=== PATIENT | female | born 1980 | race Caucasian/White ===

== ENCOUNTER → 2018-12-08 13:29 | Outpatient (CLI) | payer OTHER, SELFPAY ==
[2018-12-08 14:30] LABS: Alanine Aminotransferase 30 U/L (12-78); Albumin/Globulin Ratio 1.1 (1.1-1.8); Alkaline Phosphatase 96 U/L (46-116); Anion Gap 14.6 mEq/L (5-15); Aspartate Amino Transferase 16 U/L (15-37); Bilirubin,Total 0.2 mg/dL (0.2-1.0); Blood Urea Nitrogen 10 mg/dL (7-18); Calcium 9.1 mg/dL (8.5-10.1); Carbon Dioxide 25 mmol/L (21.0-32.0); Chloride 105 mmol/L (98-107); Creatinine,Serum 0.64 mg/dL (0.55-1.02); Estimated Glomerular Filt Rate 104 ml/min (>60); GFR (African American) 126 ML/MIN (>60); Globulin 3.6 gm/dl (1.3-3.2); Glucose 92 mg/dL (74-106); Potassium 4.6 mmoL/L (3.5-5.1); Sodium 140 mmol/L (136-145); Total Protein,Serum 7.6 gm/dL (6.4-8.2)
[2018-12-09 08:12] LABS: Lithium (Eskalith(R)) 0.2 mmol/L (0.6-1.2)
== END ==
PROVIDERS: Visit Provider Nurse Practitioner Psychiatric/Mental Health
DX: F31.9 Bipolar disorder, unspecified (principal); Z79.899 Other long term (current) drug therapy
CPT/HCPCS: 36415; 80053; 80178; 84443

== ENCOUNTER → 2018-12-16 17:10 | Outpatient (CLI) | payer OTHER, SELFPAY ==
[2018-12-16 20:13] LABS: Amphetamine/Metha Screen,Urine Positive ng/mL (<1000); Barbiturates Screen,Urine Negative ng/mL (<200); Benzodiazepines Screen,Urine Negative ng/mL (<200); Cannabinoid Screen,Urine Positive ng/mL (<50); Cocaine Screen,Urine Negative ng/mL (<300); Methadone Screen,Urine Negative ng/mL (<300); Opiate Screen,Urine Positive ng/mL (<300); Phencyclidine Screen,Urine Negative ng/mL (<25)
== END ==
PROVIDERS: Visit Provider Emergency Medicine
DX: Z79.899 Other long term (current) drug therapy (principal)
CPT/HCPCS: 80305

== ENCOUNTER → 2018-12-19 16:14 | Outpatient (CLI) | payer OTHER, SELFPAY ==
[2018-12-19 18:41] LABS: Amphetamine/Metha Screen,Urine Negative ng/mL (<1000); Barbiturates Screen,Urine Negative ng/mL (<200); Benzodiazepines Screen,Urine Negative ng/mL (<200); Cannabinoid Screen,Urine Positive ng/mL (<50); Cocaine Screen,Urine Negative ng/mL (<300); Methadone Screen,Urine Negative ng/mL (<300); Opiate Screen,Urine Negative ng/mL (<300); Phencyclidine Screen,Urine Negative ng/mL (<25)
== END ==
PROVIDERS: Visit Provider Nurse Practitioner Family
DX: Z79.899 Other long term (current) drug therapy (principal)
CPT/HCPCS: 80305

== ENCOUNTER → 2019-01-13 17:45 | Outpatient (CLI) | payer SELFPAY ==
[2019-01-13 18:22] LABS: Amphetamine/Metha Screen,Urine Positive ng/mL (<1000); Barbiturates Screen,Urine Negative ng/mL (<200); Benzodiazepines Screen,Urine Negative ng/mL (<200); Cannabinoid Screen,Urine Positive ng/mL (<50); Cocaine Screen,Urine Negative ng/mL (<300); Methadone Screen,Urine Negative ng/mL (<300); Opiate Screen,Urine Positive ng/mL (<300); Phencyclidine Screen,Urine Negative ng/mL (<25)
== END ==
PROVIDERS: Visit Provider Emergency Medicine
DX: Z79.899 Other long term (current) drug therapy (principal)
CPT/HCPCS: 80305

== ENCOUNTER 2020-07-27 11:11 | Emergency (ER) | payer MEDICARE, MEDICAID, SELFPAY ==
[2020-07-27 11:33] VITALS: BP 112/75; PULSE 94; RESP 18; TEMP 37.1; O2SAT 99; BMI 25.6
--- NOTE | 2020-07-27 11:41 | HMH.EDUTC ---
[facility] [place] Clinical Impression: Exposure to COVID-19 virus, Encounter for laboratory testing for COVID-19 virus, Bronchitis Disposition: Home, Self-Care Condition on Discharge: Good Instructions: Preventing the Spread of Coronavirus Discharge Instructions Additional Instructions: *Monitor Temp, Over the counter Motrin or Tylenol as directed/as needed Tylenol every 4 hours and Motrin every 6 hours (as long as your family doctor has told you that you can take it) for fever or pain. and straight to ER if unable to lower temp less than 101.0 after medication given *Warm salt water gargles may help to soothe the throat *Throat Lozenges *Warm fluids like tea with honey may help to soothe the throat *Sleep elevated *Humidifier/Vaporizer Follow up IMMEDIATELY for new or worsening symptoms or no Noticeable improvement over the next 48-72 hours. 911 for difficulty breathing or swallowing You was tested for today for COVID19 your test result should be back in the next 24-48 hours, you may call to the [facility] later today or tomorrow to see if your test results are back and the result [phone] [facility] hours are 9am-9pm You was given a handout with instructions for Self Quarantine and Self isolation for while you wait on test results and what to do if they are positive If you are positive the Health Dept will be contacting you also Prescriptions: Albuterol Sulfate [Proventil-HFA 90mcg/puff Inh] 1 - 2 puffs IH Q4HP PRN #1 inh PRN Reason: Shortness Of Breath Transmission Status: Received by [facility] Cefdinir [Omnicef 300mg Capsule] 300 mg PO BID #20 cap Transmission Status: Received by [facility] Referrals: PCP,No [Primary Care Provider] - Time of Disposition: 11:54 Medical Decision Making - Pasquale Inquiry Pt receiving controlled substance: No Pasquale was queried for this patient: No Vital Signs: 07/27/20 11:33 07/27/20 11:52 Temperature 98.7 F 98.7 F Temperature Source Oral Oral Pulse Rate 94 H Pulse Rate [Radial] 94 H Respiratory Rate 18 18 Blood Pressure 112/75 Blood Pressure [Right Arm] 112/75 Blood Pressure Mean [Right Arm] 87 Blood Pressure Source Automatic Cuff Blood Pressure Source [Right Arm] Automatic Cuff Blood Pressure Position Sitting Blood Pressure Position [Right Arm] Sitting 02 Sat by Pulse Oximetry 99 Oxygen Delivery Method Room Air Room Air Orders (Tests/Meds): ORDERS Category Date Time Status Covid-19 Nasal PCR ([facility]) Routine Lab 07/27/20 11:36 Ordered [facility] UTC HPI - General Stated complaint: covid exposure Time Seen by Provider: 07/27/20 11:41 Mode of Arrival: Ambulatory Source of Information: Patient Limitations: No Limitations Description of Symptoms (Recalled from Triage Doc. by RN): COUGH, FATIGUE, WANTS COVID TEST HEENT Symptoms (Recalled from RN notes): Yes Resp Symptoms (Recalled from RN notes): No Skin Symptoms (Recalled from RN notes): No MS Symptoms (Recalled from RN notes): No Functional Status (Recalled from RN notes): WNL - History of Present Illness Provider Complaint: Patient states that she is an everyday smoker States that sometimes she gets bronchitis around this time every year but she was recently around someone that tested positive for COVID States that she has been having chills, cough and congestion, body aches and feeling tired States that she wanted to get checked for COVID - Related Data Home Medications Medication Instructions Recorded Confirmed fluticasone propionate 50 1 spray INTRANASAL DAILY 10/15/18 02/03/19 mcg/actuation nasal spray,suspension Previous Rx's Medication Instructions Recorded nicotine 21 mg/24 hr daily 1 patch TRANSDERMA DAILY #21 each 11/19/18 transdermal patch gabapentin 600 mg tablet 600 mg PO QID #120 tab 12/19/18 cyclobenzaprine 10 mg tablet 10 mg PO BID #60 tab 02/03/19 docusate sodium 100 mg capsule 100 mg PO DAILY #90 cap 02/03/19 fluticasone furoate
[2020-07-27 11:52] VITALS: BP 112/75; PULSE 94; RESP 18; TEMP 37.1; O2SAT 99
[2020-07-28 09:23] LABS: Covid-19 Nasal PCR Sendout Lex NOT DETECTED
== END 2020-07-27 12:04 | disposition home or self-care (01) ==
PROVIDERS: Emergency Provider Nurse Practitioner
DX: Z20.828 Contact with and (suspected) exposure to other viral communicable diseases (principal); J44.9 Chronic obstructive pulmonary disease, unspecified; Z79.899 Other long term (current) drug therapy
CPT/HCPCS: G0463; 99201; U0004

== ENCOUNTER 2020-08-20 11:06 | Emergency (ER) | payer MEDICARE, MEDICAID, SELFPAY ==
[2020-08-20 11:26] VITALS: BP 126/82; PULSE 86; RESP 20; O2SAT 100; BMI 25.0
--- NOTE | 2020-08-20 11:48 | HMH.EDUTC ---
[facility] [place] Disposition Clinical Impression: Exposure to COVID-19 virus, Cough Disposition: Home, Self-Care Condition on Discharge: Good Instructions: Cough, Preventing the Spread of Coronavirus Discharge Instructions Additional Instructions: *Monitor Temp, Over the counter Motrin or Tylenol as directed/as needed Tylenol every 4 hours and Motrin every 6 hours (as long as your family doctor has told you that you can take it) for fever or pain. and straight to ER if unable to lower temp less than 101.0 after medication given *Warm salt water gargles may help to soothe the throat *Throat Lozenges *Warm fluids like tea with honey may help to soothe the throat *Sleep elevated *Humidifier/Vaporizer Follow up IMMEDIATELY for new or worsening symptoms or no Noticeable improvement over the next 48-72 hours. 911 for difficulty breathing or swallowing You were tested for today for COVID19 your test result should be back in the next 24-48 hours, you may call to the [facility] to see if your test results are back in the next 48 hours [phone] [facility] hours are 9am-9pm You was given a handout with instructions for Self Quarantine and Self isolation for while you wait on test results and what to do if they are positive If you are positive the Health Dept will be contacting you also Prescriptions: Fluticasone/Vilanterol [Breo Ellipta 200-25 Mcg INH] 1 inh IH DAILY #1 device Prescription Printed Referrals: PCP,No [Primary Care Provider] - Time of Disposition: 12:02 Medical Decision Making - Pasquale Inquiry Pt receiving controlled substance: No Pasquale was queried for this patient: No Vital Signs: 08/20/20 11:26 Pulse Rate [Radial] 86 Respiratory Rate 20 Blood Pressure [Right Arm] 126/82 Blood Pressure Mean [Right Arm] 96 Blood Pressure Source [Right Arm] Automatic Cuff Blood Pressure Position [Right Arm] Sitting 02 Sat by Pulse Oximetry 100 Oxygen Delivery Method Room Air Orders (Tests/Meds): ORDERS Category Date Time Status Covid-19 Nasal PCR Sendout [facility] 08/20/20 11:14 Received [facility] [place] HPI - General Stated complaint: covid exposure Time Seen by Provider: 08/20/20 11:48 Mode of Arrival: Ambulatory Source of Information: Patient Limitations: No Limitations Description of Symptoms (Recalled from Triage Doc. by RN): covid exposure, chest pain with inspiration. HEENT Symptoms (Recalled from RN notes): Yes Resp Symptoms (Recalled from RN notes): No Skin Symptoms (Recalled from RN notes): No MS Symptoms (Recalled from RN notes): No Functional Status (Recalled from RN notes): wnl - History of Present Illness Provider Complaint: Patient state that she was recently exposed to someone that tested positive for COVID States thats she is an everyday smoker and is out of her Breo Inhaler States that she has been having a little naggy cough and at times feeling like she cannot get a deep breath and wanted to get tested for COVID and see if she can get a prescription for her breo inhaler - Related Data Home Medications Medication Instructions Recorded Confirmed fluticasone propionate 50 1 spray INTRANASAL DAILY 10/15/18 02/03/19 mcg/actuation nasal spray,suspension Previous Rx's Medication Instructions Recorded nicotine 21 mg/24 hr daily 1 patch TRANSDERMA DAILY #21 each 11/19/18 transdermal patch gabapentin 600 mg tablet 600 mg PO QID #120 tab 12/19/18 cyclobenzaprine 10 mg tablet 10 mg PO BID #60 tab 02/03/19 docusate sodium 100 mg capsule 100 mg PO DAILY #90 cap 02/03/19 fluticasone furoate 200 1 inh INHALATION DAILY #28 each 02/03/19 mcg-vilanterol 25 mcg/dose inhalation powder oxycodone-acetaminophen 5 mg-325 1 tab PO BID #60 tab 02/03/19 mg tablet pantoprazole 40 mg tablet,delayed 40 mg PO DAILY #30 tab 02/03/19 release sennosides 8.6 mg-docusate sodium 1 tab PO QHS PRN #90 tab 02/03/19 50 mg tablet albuterol sulfate 0.63 mg/3 mL 0.63 mg INHALATION QID PRN #90 ml 03/09/19 solution for
[2020-08-20 12:19] VITALS: BP 126/82; PULSE 86; RESP 20; TEMP 36.7; O2SAT 100
[2020-08-21 09:43] LABS: Covid-19 Nasal PCR Sendout UK Not Detected
== END 2020-08-20 12:20 | disposition home or self-care (01) ==
PROVIDERS: Emergency Provider Nurse Practitioner
DX: Z20.828 Contact with and (suspected) exposure to other viral communicable diseases (principal); R07.89 Other chest pain; F17.210 Nicotine dependence, cigarettes, uncomplicated; J44.9 Chronic obstructive pulmonary disease, unspecified; G45.8 Other transient cerebral ischemic attacks and related syndromes; Z88.2 Allergy status to sulfonamides; Z88.6 Allergy status to analgesic agent; Z79.899 Other long term (current) drug therapy
CPT/HCPCS: G0463; 99201; U0003

== ENCOUNTER → 2021-05-31 12:07 | Outpatient (CLI) | payer MEDICARE, MEDICAID, SELFPAY | PROVIDERS: Visit Provider Nurse Practitioner | DX: Z20.822 Contact with and (suspected) exposure to COVID-19 (principal) | CPT/HCPCS: C9803; U0003; U0005 ==

== ENCOUNTER 2021-06-10 18:05 | Emergency (ER) | payer MEDICARE, MEDICAID, SELFPAY ==
[2021-06-10 18:10] VITALS: BP 128/80; PULSE 102; RESP 19; TEMP 37.2; O2SAT 99; BMI 25.6
--- NOTE | 2021-06-10 18:35 | HMH.EDUTC ---
[facility] [place] Disposition Clinical Impression: COVID-19 virus test result unknown Upper respiratory infection Qualifiers: URI type: unspecified viral URI Qualified Code(s): J06.9 - Acute upper respiratory infection, unspecified Disposition: Home, Self-Care Condition on Discharge: Good Instructions: DI for Viral Upper Respiratory Infection -- Adult, DI for COVID-19 (Suspected or Confirmed ) Additional Instructions: covid swab was sent to lab, call later today for results. self isolate until test results are known to be negative No sign of a bacterial infection. Likely viral. Viruses can take 7-14 days to run their course. Nasal saline and bulb syringe or nose Jessi to remove nasal drainage to help with nasal congestion. Hard to eat, drink, sleep with nasal congestion so important to keep this cleaned out. Monitor temp. Tylenol or Motrin as needed for pain or fever Encourage fluids, water, Gatorade, Powerade, Pedialyte if infant/toddler/child Warm salt water gargles Warm fluids Sore throat lozenges Sleep elevated Humidifier/vaporizer Follow-up immediately for new or worsening symptoms or no noticeable improvement over the next 48-72 hours. Prescriptions: Albuterol Sulfate [Albuterol Sulfate Hfa] 6.7 gm IH Q4-6H PRN 14 Days #1 each PRN Reason: Dyspnea Transmission Status: [facility]ending to [facility] # Fluticasone/Vilanterol [Breo Ellipta 100-25 Mcg INH] 1 inh IH DAILY 30 Days #1 each Transmission Status: Pending to [facility] # Referrals: Provider,Referral, MD [Primary Care Provider] - Time of Disposition: 18:56 Medical Decision Making - Pasquale Inquiry Pt receiving controlled substance: No Vital Signs: 06/10/21 18:10 Temperature 98.9 F Temperature Source Oral Pulse Rate [Right Brachial] 102 H Respiratory Rate 19 Blood Pressure [Right Arm] 128/80 Blood Pressure Mean [Right Arm] 96 Blood Pressure Source [Right Arm] Automatic Cuff Blood Pressure Position [Right Arm] Sitting 02 Sat by Pulse Oximetry 99 Oxygen Delivery Method Room Air Orders (Tests/Meds): ORDERS Category Date Time Status Covid-19 Nasal PCR ([facility]) Routine Lab 06/10/21 18:15 Received [facility] [place] HPI - General Chief complaint: [facility] Stated complaint: covid test, sore throat,cough,SOA, DOUGLAS gwen Time Seen by Provider: 06/10/21 18:35 Mode of Arrival: Ambulatory Source of Information: Patient Limitations: No Limitations Description of Symptoms (Recalled from Triage Doc. by RN): PATIENT C/O NAUSEA, CHILLS, BODY ACHES AND COUGH X 1 WEEK HEENT Symptoms (Recalled from RN notes): No Resp Symptoms (Recalled from RN notes): Yes Skin Symptoms (Recalled from RN notes): No MS Symptoms (Recalled from RN notes): No Functional Status (Recalled from RN notes): WNL - History of Present Illness Provider Complaint: 41 yr old female presents for cough, sore throat, douglas,nasal congestion and body aches for 2 days - Related Data Home Medications Medication Instructions Recorded Confirmed fluticasone propionate 50 1 spray INTRANASAL DAILY 10/15/18 02/03/19 mcg/actuation nasal spray,suspension Previous Rx's Medication Instructions Recorded nicotine 21 mg/24 hr daily 1 patch TRANSDERMA DAILY #21 each 11/19/18 transdermal patch gabapentin 600 mg tablet 600 mg PO QID #120 tab 12/19/18 cyclobenzaprine 10 mg tablet 10 mg PO BID #60 tab 02/03/19 docusate sodium 100 mg capsule 100 mg PO DAILY #90 cap 02/03/19 fluticasone furoate 200 1 inh INHALATION DAILY #28 each 02/03/19 mcg-vilanterol 25 mcg/dose inhalation powder oxycodone-acetaminophen 5 mg-325 1 tab PO BID #60 tab 02/03/19 mg tablet pantoprazole 40 mg tablet,delayed 40 mg PO DAILY #30 tab 02/03/19 release sennosides 8.6 mg-docusate sodium 1 tab PO QHS PRN #90 tab 02/03/19 50 mg tablet albuterol sulfate 0.63 mg/3 mL 0.63 mg INHALATION QID PRN #90 ml 03/09/19 solution for nebulization albuterol sulfate 90 mcg/actuation 1 inh INHALATION Q4-
[2021-06-10 18:42] VITALS: BP 128/80; PULSE 102; RESP 19; TEMP 37.2; O2SAT 99
[2021-06-10 18:53] LABS: UTC Strep Screen (Rapid) Negative (Negative)
[2021-06-10 18:55] LABS: Coronavirus 19, PCR Not Detected (NotDetected); Influenza A, PCR Not Detected (NotDetected); Influenza B, PCR Not Detected (NotDetected)
== END 2021-06-10 19:04 | disposition home or self-care (01) ==
PROVIDERS: Emergency Provider Nurse Practitioner Family
DX: J06.9 Acute upper respiratory infection, unspecified (principal); Z20.822 Contact with and (suspected) exposure to COVID-19; J44.9 Chronic obstructive pulmonary disease, unspecified; F17.210 Nicotine dependence, cigarettes, uncomplicated; Z88.6 Allergy status to analgesic agent
CPT/HCPCS: G0463; 87880; 99203; C9803; U0003; U0005

== ENCOUNTER 2023-09-26 11:11 | Emergency (ER) | payer MEDICARE, MEDICAID, SELFPAY ==
[2023-09-26 11:12] VITALS: BP 119/77; PULSE 113; RESP 22; TEMP 37; O2SAT 99; BMI 21.9
--- NOTE | 2023-09-26 11:26 | HMH.EDGENADL ---
Discharge Plan Disposition Patient Disposition: Home, Self-Care Condition: Good Prescriptions Prescriptions: New ondansetron 4 mg tablet,disintegrating 4 mg PO Q8H PRN (Reason: nausea and vomiting) 5 Days Qty: 10 0RF cephalexin 500 mg capsule 500 mg PO BID 10 Days Qty: 20 0RF Discontinued cefdinir 300 MG capsule 300 mg PO BID Qty: 20 0RF No Action fluticasone propionate [Allergy Relief (fluticasone)] 50 mcg/actuation spray,suspension 1 spray INTRANASAL DAILY gabapentin 600 mg tablet 600 mg PO QID Qty: 120 0RF oxycodone-acetaminophen [Percocet] 5-325 mg tablet 1 tab PO BID Qty: 60 0RF nicotine 21 mg/24 hr patch 24 hour 1 patch TRANSDERMA DAILY Qty: 21 0RF cyclobenzaprine 10 mg tablet 10 mg PO BID Qty: 60 0RF docusate sodium 100 mg capsule 100 mg PO DAILY Qty: 90 0RF Breo Ellipta 200-25 mcg/dose blister with device 1 inh INHALATION DAILY Qty: 28 0RF pantoprazole 40 mg tablet,delayed release (DR/EC) 40 mg PO DAILY Qty: 30 0RF sennosides-docusate sodium [Senna with Docusate Sodium] 8.6-50 mg tablet 1 tab PO QHS PRN (Reason: constipation) Qty: 90 0RF albuterol sulfate 0.63 mg/3 mL solution for nebulization 0.63 mg INHALATION QID PRN (Reason: shortness of breath or wheezing) Qty: 90 0RF albuterol sulfate 90 mcg/actuation aerosol powdr breath activated 1 inh INHALATION Q4-6H PRN (Reason: shortness of breath or wheezing) Qty: 1 0RF aspirin [Adult Low Dose Aspirin] 81 mg tablet,delayed release (DR/EC) 81 mg PO DAILY Qty: 90 0RF lithium carbonate 300 mg capsule 300 mg PO BID Qty: 60 0RF venlafaxine 150 mg capsule,extended release 24hr 150 mg PO DAILY Qty: 30 0RF albuterol sulfate 200 PUFFS HFA aerosol inhaler 1 - 2 puffs IH Q4HP PRN (Reason: Shortness Of Breath) Qty: 1 0RF fluticasone furoate-vilanterol 1 EACH blister with device 1 inh IH DAILY Qty: 1 0RF albuterol sulfate 8.5 GM HFA aerosol inhaler 6.7 gm IH Q4-6H PRN (Reason: Dyspnea) 14 Days Qty: 1 0RF fluticasone furoate-vilanterol 1 EACH blister with device 1 inh IH DAILY 30 Days Qty: 1 0RF Referrals Follow up/Referrals: Provider,Referral, MD [Primary Care Provider] - See instructions Activity Restrictions/Add. Instructions Additional Instructions/Restrictions: Please return to the emergency department if you experience any new or worsening symptoms. Clinical Impressions Clinical Impression: COVID, Acute streptococcal pharyngitis, Fibroid, uterine Acute cystitis Qualifiers: Hematuria presence: with hematuria Qualified Code(s): N30.01 - Acute cystitis with hematuria Discharge ED Provider: Adams Olivas Adult HPI General Chief complaint: PAIN Stated complaint: body aches and lower back pain Time Seen by Provider: 09/26/23 11:26 Mode of Arrival: Ambulatory Source of Information: Patient Limitations: No Limitations Description of Symptoms (Recalled from ER Triage Doc. by RN): Patient reports left side back pain, body chills, nausea, and sore thorat. Patient denies fevers or being exposed to Covid/Flu. History of Present Illness HPI narrative: Patient presents with multiple complaints including sore throat, myalgias, left flank pain. History is limited at this time as patient is in no acute distress. She denies any dysuria. She has had similar symptoms before attributable to urolithiasis. Her sore throat and myalgias started last night. Her flank pain has been ongoing for several days however is worsening. She has had some difficulty tolerating p.o. She has had no nausea or vomiting. She denies any sick contacts. She reports history of strokes and TIAs in the past. She denies any recreational drug use. She denies any vaginal bleeding or discharge. She has had pain with swallowing but no difficulty tolerating secretions or liquids. Related Data Home Medications Medication Instructions Recorded Confirmed fluticasone propionate 50 1 spray intranasal DAILY 10/15/18 02/03/19 mcg/actuation nasal spray,suspension (Allergy Relief (fluticasone)) Previous Rx's Medication Instructions Recorded nicotine 21 mg/24 hr daily 1 patch transdermal DAILY #21 ea 11/19/18 transdermal patch gabapentin 600 mg tablet 600 mg PO QID #120 tabs 12/19/18 cyclobenzaprine 10 mg tablet 10 mg PO BID #60 tabs 02/03/19 docusate sodium 100 mg capsule 100 mg PO DAILY #90 caps 02/03/19 fluticasone furoate 200 1 inh inhalation DAILY #28 ea 02/03/19 mcg-vilanterol 25 mcg/dose inhalation powder (Breo Ellipta) oxycodone-acetaminophen 5 mg-325 1 tab PO BID #60 tabs 02/03/19 mg tablet (Percocet) pantoprazole 40 mg tablet,delayed 40 mg PO DAILY #30 tabs 02/03/19 release sennosides 8.6 mg-docusate sodium 1 tab PO QHS PRN constipation #90 02/03/19 50 mg tablet (Senna with Docusate tabs Sodium) albuterol sulfate 0.63 mg/3 mL 0.63 mg (3 mL) inhalation QID PRN 03/09/19 solution for nebulization shortness of breath or wheezing #90 mL albuterol sulfate 90 mcg/actuation 1 inh inhalation Q4-6H PRN 03/09/19 breath activated powder inhaler shortness of breath or wheezing #1 ea aspirin 81 mg tablet,delayed 81 mg PO DAILY #90 tabs 04/08/19 release (Adult Low Dose Aspirin) lithium carbonate 300 mg capsule 300 mg PO BID #60 caps 04/08/19 venlafaxine 150 mg 150 mg PO DAILY #30 caps 04/08/19 capsule,extended release 24 hr albuterol sulfate 90 mcg/actuation 1 - 2 puffs IH Q4HP PRN Shortness 07/27/20 aerosol inhaler Of Breath #1 inh fluticasone furoate 200 1 inh IH DAILY #1 device 08/20/20 mcg-vilanterol 25 mcg/dose inhalation powder albuterol sulfate 90 mcg/actuation 6.7 gm IH Q4-6H PRN Dyspnea 14 06/10/21 aerosol inhaler days #1 ea fluticasone furoate 100 1 inh IH DAILY 30 days #1 ea 06/10/21 mcg-vilanterol 25 mcg/dose inhalation powder cephalexin 500 mg capsule 500 mg PO BID 10 days #20 caps 09/26/23 ondansetron 4 mg disintegrating 4 mg PO Q8H PRN nausea and 09/26/23 tablet vomiting 5 days #10 tabs Allergies Allergy/AdvReac Type Severity Reaction Status Date / Time acetaminophen [From Fioricet] Allergy Severe Swelling Verified 02/03/19 16:19 of Lip/Tongue/Throat butalbital [From Fioricet] Allergy Severe Swelling Verified 02/03/19 16:19 of Lip/Tongue/Throat caffeine [From Fioricet] Allergy Severe Swelling Verified 02/03/19 16:19 of Lip/Tongue/Throat pravastatin Allergy Intermediate Agitated Verified 02/03/19 16:19 lidocaine Allergy Verified 02/03/19 16:19 silver Allergy Verified 02/03/19 16:19 [From Tegaderm AG Mesh] sulfamethoxazole Allergy Verified 02/03/19 16:19 [From Bactrim] tramadol [From Ultram] Allergy Verified 02/03/19 16:19 trimethoprim [From Bactrim] Allergy Verified 02/03/19 16:19 [facility] Disclaimer: The information contained in this section may have been updated after the patient was seen, as this information can be updated by other users. Social History Smoking Status: Current every day smoker tobacco type: cigarettes packs per day: 1 second hand exposure: Yes alcohol intake: never substance use type: marijuana current occupational status: other Travel in the last 8 weeks: None number of children: 3 ROS Obtained: Yes Systems reviewed as appropriate & no additional complaints except as documented As per HPI Physical Exam General General appearance: alert and in distress Head Head exam: atraumatic and normocephalic Eye Eye exam: Present normal appearance ENT ENT exam: Present other (Erythematous oropharynx without evidence of tonsillar enlargement, asymmetry, uvular deviation, or exudate) Neck Neck exam: Present normal inspection Chest Chest inspection: Present normal inspection and symmetric chest wall rise Respiratory Respiratory exam: Present normal lung sounds bilaterally; Absent respiratory distress Cardiovascular Cardiovascular exam: Present regular rate and normal rhythm Abdominal Exam Abdominal exam: Present soft and other (Left CVA tenderness); Absent distention Neurological Exam Neurological exam: Present alert and oriented X3 Psychiatric Psychiatric exam: Present normal affect and normal mood Skin Skin exam: Present warm and dry Medical Decision Making Medical Records Medical records reviewed: Yes I reviewed the patient's medical records. Pasquale Inquiry Pt receiving controlled substance: No Vital Signs: 09/26/23 11:12 09/26/23 13:59 09/26/23 14:50 Temperature 98.6 F 98.8 F Temperature Source Oral Oral Pulse Rate 105 H 93 H Pulse Rate [Right Brachial] 113 H Respiratory Rate 22 20 Blood Pressure 105/67 L 103/67 L Blood Pressure [Right Arm] 119/77 Blood Pressure Mean [Right Arm] 91 Blood Pressure Source Automatic Cuff Blood Pressure Source [Right Arm] Automatic Cuff Blood Pressure Position Sitting Blood Pressure Position [Right Arm] Sitting 02 Sat by Pulse Oximetry 99 99 Oxygen Delivery Method Room Air Room Air Room Air Lab Data Lab Results 09/26/23 11:19: SARS-CoV-2 (PCR) Detected A, Influenza A Untype (PCR) Not detected, Influenza Type B (PCR) Not detected 09/26/23 11:43: Group A Strep Rapid Positive A 09/26/23 11:47: Urine Color Red, Urine Appearance Turbid, Urine pH 5.5, Ur Specific [place] >= 1.030, Urine Protein 2+, Urine Glucose (UA) Negative, Urine Ketones Negative, Urine Blood 3+, Urine Nitrate Negative, Urine Bilirubin 1+ A, Urine Urobilinogen 0.2, Ur Leukocyte Esterase Negative, Urine RBC Tntc, Urine WBC 50-100, Ur Squamous Epith Cells 5-10, Urine Bacteria Trace, Urine Opiates Screen Negative, Urine Methadone Screen Negative, Ur Barbituates Screen Negative, Ur Phencyclidine Scrn Negative, Ur Amphetamines Screen TNP, U Benzodiazepines Scrn Negative, Urine Cocaine Screen Negative, U Marijuana (THC) Screen Positive H 09/26/23 11:49: WBC 4.4 L, RBC 4.47, Hgb 12.8, Hct 39.1, MCV 87.5, MCH 28.5, MCHC 32.6, RDW 13.9, Plt Count 286, MPV 7.9, Neut % (Auto) 75.8, Lymph % (Auto) 11.4, [place] % (Auto) 11.6 H, Eos % (Auto) 0.6, Baso % (Auto) 0.5, Neut # (Auto) 3.3, Lymph # (Auto) 0.5 L, [place] # (Auto) 0.5, Eos # (Auto) 0.0, Baso # (Auto) 0.0, Sodium 134 L, Potassium 4.3, Chloride 101, Carbon Dioxide 26, Anion Gap 11.3, BUN 8, Creatinine 0.60, Estimated Creat Clear 104, Estimated GFR 109, Est GFR ( Amer) 132, Glucose 100, Calcium 8.6, Total Bilirubin 0.3, AST 27, ALT 18, Alkaline Phosphatase 69, Total Protein 7.9, Albumin 4.6, Globulin 3.3 H, Albumin/Globulin Ratio 1.4, Lipase 195, Serum HCG, Qual Negative 09/26/23 11:49 09/26/23 11:49 Orders (Tests/Meds): ED MEDICATIONS Discontinued Medications Generic Name Dose Route Start Last Admin Trade Name Alex PRN Reason Stop Dose Admin Lactated Ringer's 1,000 mls @ 999 mls/hr 09/26/23 11:34 09/26/23 11:47 Lactated Ringer's 1000 Ml Bag IV 09/26/23 12:34 999 mls/hr .Q1H1M ONE Administration Ketorolac Tromethamine 15 mg 09/26/23 11:34 09/26/23 11:46 Ketorolac 30mg/Ml Vial IV 09/26/23 11:35 15 mg ONCE ONE Administration Morphine Sulfate 4 mg 09/26/23 14:21 09/26/23 14:25 Morphine 4mg/Ml Syringe IV 09/26/23 14:22 Not Given ONCE ONE Ondansetron HCl 4 mg 09/26/23 11:34 09/26/23 11:46 Ondansetron 4mg/2ml Vial IV 09/26/23 11:35 4 mg ONCE ONE Administration ORDERS Category Date Time Status CT abdomen pelvis wo con Stat Cat Scan 09/26/23 12:31 Completed CBC w/Auto Diff [Complete Blood Count Auto Diff] Stat Lab 09/26/23 11:49 Completed CMP [Comprehensive Metabolic Panel] Stat Lab 09/26/23 11:49 Completed Drug Screen,Urine Stat Lab 09/26/23 11:47 Completed Lipase Stat Lab 09/26/23 11:49 Completed Rapid PCR Covid and Flu A/B Stat Lab 09/26/23 11:19 Completed Serum [HCG Qualitative, Serum] Stat Lab 09/26/23 11:49 Completed Strep Scrn Group A (Rapid) Stat Lab 09/26/23 11:43 Completed Urinalysis and Microscopic Stat Lab 09/26/23 11:47 Completed Urine Culture Stat Micro 09/26/23 11:47 Received Medical Decision Narrative: Patient with history and exam per above presenting for evaluation of multiple complaints including flank pain, sore throat, myalgias, chills Diagnoses considered include strep pharyngitis, viral URI, urolithiasis, pyelonephritis, no evidence clinically to suggest peritonsillar abscess, retropharyngeal abscess, no abdominal tenderness concerning for abdominal surgical acute pathology such as perforation, diverticulitis, PID ED workup and treatment included: ED MEDICATIONS Discontinued Medications Generic Name Dose Route Start Last Admin Trade Name Freq PRN Reason Stop Dose Admin Lactated Ringer's 1,000 mls @ 999 mls/hr 09/26/23 11:34 09/26/23 11:47 Lactated Ringer's 1000 Ml Bag IV 09/26/23 12:34 999 mls/hr .Q1H1M ONE Administration Ketorolac Tromethamine 15 mg 09/26/23 11:34 09/26/23 11:46 Ketorolac 30mg/Ml Vial IV 09/26/23 11:35 15 mg ONCE ONE Administration Morphine Sulfate 4 mg 09/26/23 14:21 09/26/23 14:25 Morphine 4mg/Ml Syringe IV 09/26/23 14:22 Not Given ONCE ONE Ondansetron HCl 4 mg 09/26/23 11:34 09/26/23 11:46 Ondansetron 4mg/2ml Vial IV 09/26/23 11:35 4 mg ONCE ONE Administration ORDERS Category Date Time Status CT abdomen pelvis wo con Stat Cat Scan 09/26/23 12:31 Completed CBC w/Auto Diff [Complete Blood Count Auto Diff] Stat Lab 09/26/23 11:49 Completed CMP [Comprehensive Metabolic Panel] Stat Lab 09/26/23 11:49 Completed Drug Screen,Urine Stat Lab 09/26/23 11:47 Completed Lipase Stat Lab 09/26/23 11:49 Completed Rapid PCR Covid and Flu A/B Stat Lab 09/26/23 11:19 Completed Serum [HCG Qualitative, Serum] Stat Lab 09/26/23 11:49 Completed Strep Scrn Group A (Rapid) Stat Lab 09/26/23 11:43 Completed Urinalysis and Microscopic Stat Lab 09/26/23 11:47 Completed Urine Culture Stat Micro 09/26/23 11:47 Received Labs were independently interpreted by me, significant for COVID-positive, strep positive, no leukocytosis, mild hyponatremia to 134, urinalysis with pyuria, hematuria Imaging was independently visualized and interpreted by me, significant for findings most consistent with uterine fibroid, which was discussed with patient. She was informed of this finding and instructed to follow-up closely, she was informed that findings are most consistent with uterine fibroid but may represent other pathology such as cancer and will need to investigate these findings further My clinical impression at this time is most consistent with COVID, strep pharyngitis, pyelonephritis. Upon repeat evaluation patient reports improvement of symptoms, is able to tolerate p.o. intake. She is comfortable and requesting to manage her symptoms at home at this time. She is deemed stable for discharge at this time. I discussed my clinical impression with patient and answered all questions. At this time, the evidence for any other entities in the differential is insufficient to warrant any further testing or ED observation. This was explained to the patient. The patient was advised that persistent or worsening symptoms require further evaluation. I confirmed the patient's understanding of this discussion. Patient was prescribed course of antibiotic for treatment of both strep pharyngitis and urinary tract infection. Please see discharge section of note for dosing. Critical Care Critical Care Time Critical Care Time: No
--- NOTE | 2023-09-26 11:30 | PC.NURSE ---
DR HAYWOOD AT BEDSIDE
[2023-09-26 11:41] LABS: Influenza A, PCR Not Detected (NotDetected); Influenza B, PCR Not Detected (NotDetected)
[2023-09-26] MEDS: ONDANSETRON 4MG/2ML VIAL 4 MG IV (11:46)
[2023-09-26] MEDS: KETOROLAC 30MG/ML VIAL 15 MG IV (11:46)
[2023-09-26] MEDS: LACTATED RINGERS 1000ML 1,000 ML 999 ML IV (11:47)
[2023-09-26 11:52] LABS: Microscopic, Urine URINE MICROSCOPIC (MICROSCOPIC)
[2023-09-26 11:58] LABS: Strep Scrn Group A (Rapid) Positive (Negative)
[2023-09-26 12:06] LABS: Basophils % 0.5 % (0.1-2.0); Eosinophils % 0.6 % (0.1-12.0); Hematocrit 39.1 % (37.0-47.0); Hemoglobin 12.8 g/dL (12.2-16.2); Lymphocytes # 0.5 K/mm3 (0.7-4.5); Lymphocytes % 11.4 % (10-50); Mean Corpuscular HGB Conc 32.6 g/dL (31.8-35.4); Mean Corpuscular Hemoglobin 28.5 pg (27.0-31.2); Mean Corpuscular Volume 87.5 fl (81-99); Mean Platelet Volume 7.9 fl (7.4-10.4); Monocytes # 0.5 K/mm3 (0.1-1.0); Monocytes % 11.6 % (1.7-9.3); Neutrophils # 3.3 K/mm3 (1.8-7.8); Neutrophils % 75.8 % (37.0-80.0); Platelet Count 286 K/mm3 (142-424); Red Blood Count 4.47 M/mm3 (4.20-5.40); Red Cell Distribution Width 13.9 % (11.5-17.5); White Blood Count 4.4 K/mm3 (4.8-10.8)
[2023-09-26 12:06] LABS: Blood, Urine 3+ (Negative); Glucose,Urine (UA) Negative (Negative); Ketones,Urine Negative (Negative); Leukocyte Esterase,Urine Negative (Negative); Nitrate,Urine Negative (Negative); PH,Urine 5.5 (5.0-8.5); Protein,Urine 2+ (Negative); Specific Gravity, Urine >= 1.030 (1.005-1.030); Urobilinogen,Urine 0.2 EU/dl (0.2)
[2023-09-26 12:08] LABS: Chloride 101 mmol/L (98-107); Potassium 4.3 mmoL/L (3.5-5.1)
[2023-09-26 12:10] LABS: Alanine Aminotransferase 18 U/L (12-78); Aspartate Amino Transferase 27 U/L (14-36); Blood Urea Nitrogen 8 mg/dl (7-17); Creatinine Clearance Estimated 104 mL/min (50-200); Estimated Glomerular Filt Rate 109 ml/min (>60); GFR (African American) 132 ML/MIN (>60)
[2023-09-26 12:11] LABS: Barbiturates Screen,Urine Negative ng/ml (<200); Benzodiazepines Screen,Urine Negative ng/ml (<200)
[2023-09-26 12:11] LABS: Albumin Level 4.6 g/dl (3.5-5.0); Albumin/Globulin Ratio 1.4 (1.1-1.8); Alkaline Phosphatase 69 U/L (38-126); Bilirubin,Total 0.3 mg/dl (0.2-1.3); Calcium 8.6 mg/dl (8.4-10.2); Carbon Dioxide 26 mmol/L (22.0-30.0); Globulin 3.3 g/dL (1.3-3.2); Glucose 100 mg/dl (74-100); Lipase 195 U/L (23-300); Total Protein,Serum 7.9 g/dl (6.3-8.2)
[2023-09-26 12:12] LABS: Appearance,Urine TURBID (Clear); Bacteria,Urine Trace /lpf; Bilirubin,Urine 1+ (Negative); Color,Urine RED (Yellow); RBC,Urine TNTC #/hpf (0-3); WBC,Urine 50-100 #/hpf (0-3)
[2023-09-26 12:13] LABS: Cocaine Screen,Urine Negative ng/ml (<300)
[2023-09-26 12:14] LABS: Cannabinoid Screen,Urine Positive ng/ml (<50); Methadone Screen,Urine Negative ng/ml (<300)
[2023-09-26 12:15] LABS: Opiate Screen,Urine Negative ng/ml (<300); Phencyclidine Screen,Urine Negative ng/ml (<25)
[2023-09-26 12:24] LABS: Coronavirus 19, PCR Detected (NotDetected)
--- NOTE | 2023-09-26 12:31 | CT_ITS ---
FINAL REPORT TECHNIQUE: Axial images through the abdomen and pelvis were performed without contrast. This study was performed with techniques to keep radiation doses as low as reasonably achievable, (ALARA). Individualized dose reduction techniques using automated exposure control or adjustment of mA and/or kV according to the patient's size were employed. CLINICAL HISTORY: L flank pain, concern for stone COMPARISON: 10/14/2018 FINDINGS: ABDOMEN: The lung bases are clear. The heart size is normal. Limited images of the liver are unremarkable. The spleen is normal. No adrenal mass is identified. The aorta is normal in caliber. There is no significant free fluid or adenopathy. There is no nephrolithiasis. There is no hydronephrosis. PELVIS: The appendix is not identified. The uterus is significantly enlarged with dominant mass measuring 10.8 cm consistent with uterine fibroids. This is significantly worse since the prior. No ureteral stones identified. The urinary bladder is unremarkable. There is no significant free fluid or adenopathy. IMPRESSION: Worsening uterine fibroids. No evidence of nephrolithiasis or hydronephrosis. Reviewed, Interpreted and Dictated by Abimael Capone III, MD Transcribed by Cynthia Baker Authenticated and [facility]
--- NOTE | 2023-09-26 12:55 | PC.NURSE ---
PT TO CT
[2023-09-26 13:08] LABS: HCG Qualitative, Serum Negative (Negative)
[2023-09-26 13:35] LABS: Anion Gap 11.3 mEq/L (5-15); Sodium 134 mmol/L (136-145)
[2023-09-26 13:59] VITALS: BP 105/67; PULSE 105; O2SAT 99
--- NOTE | 2023-09-26 14:00 | PC.NURSE ---
Rounded on pt. Pt resting at this time. No needs voiced.
--- NOTE | 2023-09-26 14:36 | PC.NURSE ---
DR HAYWOOD AT BEDSIDE TO UPDATE PT
[2023-09-26 14:50] VITALS: BP 103/67; PULSE 93; RESP 20; TEMP 37.1; O2SAT 97
--- NOTE | 2023-09-29 16:48 | PC.NURSE ---
aware of urine results, pt dc on cephalexin, NTD at this time
--- NOTE | 2023-10-01 09:08 | PC.NURSE ---
urine culture results discussed with dr dutta, no new orders. pt on correct abx
[2023-10-02 12:30] LABS: Amphetamine Positive (.); Amphetamine (GC/MS) >3000 ng/mL (Cutoff=500); Amphetamines Positive (.); Methamphetamine Positive (.); Methamphetamine (GC/MS) >3000 ng/mL (Cutoff=500)
== END 2023-09-26 14:55 | disposition home or self-care (01) ==
PROVIDERS: Emergency Provider Emergency Medicine
DX: U07.1 COVID-19 (principal); J02.0 Streptococcal pharyngitis; N30.01 Acute cystitis with hematuria; D25.9 Leiomyoma of uterus, unspecified; R11.0 Nausea; F17.210 Nicotine dependence, cigarettes, uncomplicated
CPT/HCPCS: 74176; 80053; 80307; 80324; 81001; 83690; 84703; 85025; 87086; 87430; 87636; 96361; 96374; 96375; 99285; J2405

== ENCOUNTER 2023-11-01 03:38 | Emergency (ER) | payer MEDICARE, SELFPAY ==
[2023-11-01] VITALS (9 sets, daily range): BP systolic 112–132; BP diastolic 72–93; PULSE 53–72; RESP 16–19; TEMP 36.5–36.6; O2SAT 97–100; BMI 20.1
--- NOTE | 2023-11-01 03:47 | CT_ITS ---
PROCEDURE INFORMATION: Exam: CTA Abdomen and Pelvis With Contrast Exam date and time: 11/01/2023 4:29 AM Age: 43 years old Clinical indication: Abdominal pain; Epigastric; Additional info: Severe epigastric abdominal pain sudden onset TECHNIQUE: Imaging protocol: Computed tomographic angiography of the abdomen and pelvis with contrast. Exam focused on the arteries. 3D rendering (Not supervised by radiologist): MIP and/or 3D reconstructed images were created by the technologist. Radiation optimization: All CT scans at this facility use at least one of these dose optimization techniques: automated exposure control; mA and/or kV adjustment per patient size (includes targeted exams where dose is matched to clinical indication); or iterative reconstruction. Contrast material: ISOVUE; Contrast volume: 100 ml; Contrast route: INTRAVENOUS (IV); COMPARISON: CT ABDOMEN PELVIS WO CON 09/26/2023 12:55 PM FINDINGS: Aorta: The abdominal aorta is unremarkable. Celiac trunk and mesenteric arteries: No occlusion or significant stenosis. Renal arteries: No occlusion or significant stenosis. Right iliac arteries: No occlusion or significant stenosis. Left iliac arteries: No occlusion or significant stenosis. Liver: No mass. Gallbladder and bile ducts: Unremarkable. No calcified stones. No ductal dilation. Pancreas: Unremarkable. No mass. No ductal dilation. Spleen: Unremarkable. No splenomegaly. Adrenal glands: Unremarkable. No mass. Kidneys and ureters: Unremarkable. No solid mass. No hydronephrosis. Stomach and bowel: Unremarkable. No obstruction. No mucosal thickening. Appendix: Prior appendectomy. Intraperitoneal space: Unremarkable. No free air. No significant fluid collection. Lymph nodes: Unremarkable. No enlarged lymph nodes. Urinary bladder: Unremarkable. No mass. Reproductive: The uterus is somewhat prominent consistent with fibroids. Bones/joints: No acute fracture. Soft tissues: Unremarkable. IMPRESSION: 1. Unremarkable exam. 2. Fibroid uterus.
--- NOTE | 2023-11-01 03:47 | CT_ITS ---
PROCEDURE INFORMATION: Exam: CTA Chest With Contrast Exam date and time: 11/01/2023 4:29 AM Age: 43 years old Clinical indication: Pain; Chest pressure; Additional info: Severe epigastric pain radiating to back TECHNIQUE: Imaging protocol: Computed tomographic angiography of the chest with contrast. Exam focused on the arteries. 3D rendering (Not supervised by radiologist): MIP and/or 3D reconstructed images were created by the technologist. Radiation optimization: All CT scans at this facility use at least one of these dose optimization techniques: automated exposure control; mA and/or kV adjustment per patient size (includes targeted exams where dose is matched to clinical indication); or iterative reconstruction. Contrast material: ISOVUE; Contrast volume: 100 ml; Contrast route: INTRAVENOUS (IV); COMPARISON: [facility] CT angio chest 10/17/2018 11:03 PM FINDINGS: Pulmonary arteries: Normal. No pulmonary emboli. Aorta: No evidence of dissection is noted. A small amount of low-attenuation atheromata is seen in the descending aorta. Lungs: Small granuloma is seen in the left lower lobe. Pleural spaces: Unremarkable. No pneumothorax. No pleural effusion. Heart: Unremarkable. No cardiomegaly. No pericardial effusion. Lymph nodes: Some small calcified hilar lymph nodes are present. Bones/joints: Unremarkable. No acute fracture. Soft tissues: Unremarkable. IMPRESSION: 1. No evidence of pulmonary embolism, aortic dissection or acute aortic syndrome. 2. Small amount of noncalcified atheroma is in the descending aorta likely atherosclerosis..
--- NOTE | 2023-11-01 03:49 | HMH.EDGENADL ---
Discharge Plan Disposition Patient Disposition: Home, Self-Care Condition: Good Prescriptions Prescriptions: New polyethylene glycol 3350 [ClearLax] 17 gram/dose powder 17 g PO DAILY PRN (Reason: constipation) Qty: 510 0RF No Action fluticasone propionate [Allergy Relief (fluticasone)] 50 mcg/actuation spray,suspension 1 spray INTRANASAL DAILY gabapentin 600 mg tablet 600 mg PO QID Qty: 120 0RF oxycodone-acetaminophen [Percocet] 5-325 mg tablet 1 tab PO BID Qty: 60 0RF nicotine 21 mg/24 hr patch 24 hour 1 patch TRANSDERMA DAILY Qty: 21 0RF cyclobenzaprine 10 mg tablet 10 mg PO BID Qty: 60 0RF docusate sodium 100 mg capsule 100 mg PO DAILY Qty: 90 0RF Breo Ellipta 200-25 mcg/dose blister with device 1 inh INHALATION DAILY Qty: 28 0RF pantoprazole 40 mg tablet,delayed release (DR/EC) 40 mg PO DAILY Qty: 30 0RF sennosides-docusate sodium [Senna with Docusate Sodium] 8.6-50 mg tablet 1 tab PO QHS PRN (Reason: constipation) Qty: 90 0RF albuterol sulfate 0.63 mg/3 mL solution for nebulization 0.63 mg INHALATION QID PRN (Reason: shortness of breath or wheezing) Qty: 90 0RF albuterol sulfate 90 mcg/actuation aerosol powdr breath activated 1 inh INHALATION Q4-6H PRN (Reason: shortness of breath or wheezing) Qty: 1 0RF aspirin [Adult Low Dose Aspirin] 81 mg tablet,delayed release (DR/EC) 81 mg PO DAILY Qty: 90 0RF lithium carbonate 300 mg capsule 300 mg PO BID Qty: 60 0RF venlafaxine 150 mg capsule,extended release 24hr 150 mg PO DAILY Qty: 30 0RF ondansetron 4 mg tablet,disintegrating 4 mg PO Q8H PRN (Reason: nausea and vomiting) 5 Days Qty: 10 0RF cephalexin 500 mg capsule 500 mg PO BID 10 Days Qty: 20 0RF albuterol sulfate 200 PUFFS HFA aerosol inhaler 1 - 2 puffs IH Q4HP PRN (Reason: Shortness Of Breath) Qty: 1 0RF fluticasone furoate-vilanterol 1 EACH blister with device 1 inh IH DAILY Qty: 1 0RF albuterol sulfate 8.5 GM HFA aerosol inhaler 6.7 gm IH Q4-6H PRN (Reason: Dyspnea) 14 Days Qty: 1 0RF fluticasone furoate-vilanterol 1 EACH blister with device 1 inh IH DAILY 30 Days Qty: 1 0RF Referrals Follow up/Referrals: Provider,Referral, MD [Primary Care Provider] - See instructions Activity Restrictions/Add. Instructions Additional Instructions/Restrictions: You were evaluated in the ER for abdominal pain. Your workup is reassuring. You have been provided a referral to GI for outpatient follow-up. You have also been given a prescription for MiraLAX. Avoid illicit substances for your overall wellbeing. Take this as directed to have more regular bowel movements. Make an appointment with your primary care physician for reevaluation in a few days. Return to the ER with new, worsening, or otherwise concerning symptoms. Clinical Impressions Clinical Impression: Abdominal pain, epigastric Instructions Patient Instructions: DI for Acute Abdominal Pain Discharge ED Provider: Christopher Lee General Adult HPI General Chief complaint: Abdominal Pain Stated complaint: abdominal pain Time Seen by Provider: 11/01/23 03:47 History of Present Illness HPI narrative: 43-year-old female with significant self-reported past medical history but no documented chronic medical conditions presents to the ER with concerns of severe epigastric abdominal pain. She states the only medication that she has is for heartburn and she does not take it regularly. Patient self-reports a history of multiple strokes, kidney stones, ovarian cysts. She states suddenly about 3 hours ago she had acute onset severe epigastric abdominal pain with nausea. She is writhing around and required a wheelchair to get to the room. Patient does have a history of tobacco and marijuana use but denies other illicit substances and alcohol. Patient states last bowel movement was a few days ago. Patient does have prior chronic narcotics prescriptions. Related Data Home Medications Medication Instructions Recorded Confirmed fluticasone propionate 50 1 spray intranasal DAILY 10/15/18 02/03/19 mcg/actuation nasal spray,suspension (Allergy Relief (fluticasone)) Previous Rx's Medication Instructions Recorded nicotine 21 mg/24 hr daily 1 patch transdermal DAILY #21 ea 11/19/18 transdermal patch gabapentin 600 mg tablet 600 mg PO QID #120 tabs 12/19/18 cyclobenzaprine 10 mg tablet 10 mg PO BID #60 tabs 02/03/19 docusate sodium 100 mg capsule 100 mg PO DAILY #90 caps 02/03/19 fluticasone furoate 200 1 inh inhalation DAILY #28 ea 02/03/19 mcg-vilanterol 25 mcg/dose inhalation powder (Breo Ellipta) oxycodone-acetaminophen 5 mg-325 1 tab PO BID #60 tabs 02/03/19 mg tablet (Percocet) pantoprazole 40 mg tablet,delayed 40 mg PO DAILY #30 tabs 02/03/19 release sennosides 8.6 mg-docusate sodium 1 tab PO QHS PRN constipation #90 02/03/19 50 mg tablet (Senna with Docusate tabs Sodium) albuterol sulfate 0.63 mg/3 mL 0.63 mg (3 mL) inhalation QID PRN 03/09/19 solution for nebulization shortness of breath or wheezing #90 mL albuterol sulfate 90 mcg/actuation 1 inh inhalation Q4-6H PRN 03/09/19 breath activated powder inhaler shortness of breath or wheezing #1 ea aspirin 81 mg tablet,delayed 81 mg PO DAILY #90 tabs 04/08/19 release (Adult Low Dose Aspirin) lithium carbonate 300 mg capsule 300 mg PO BID #60 caps 04/08/19 venlafaxine 150 mg 150 mg PO DAILY #30 caps 04/08/19 capsule,extended release 24 hr albuterol sulfate 90 mcg/actuation 1 - 2 puffs IH Q4HP PRN Shortness 07/27/20 aerosol inhaler Of Breath #1 inh fluticasone furoate 200 1 inh IH DAILY #1 device 08/20/20 mcg-vilanterol 25 mcg/dose inhalation powder albuterol sulfate 90 mcg/actuation 6.7 gm IH Q4-6H PRN Dyspnea 14 06/10/21 aerosol inhaler days #1 ea fluticasone furoate 100 1 inh IH DAILY 30 days #1 ea 06/10/21 mcg-vilanterol 25 mcg/dose inhalation powder cephalexin 500 mg capsule 500 mg PO BID 10 days #20 caps 09/26/23 ondansetron 4 mg disintegrating 4 mg PO Q8H PRN nausea and 09/26/23 tablet vomiting 5 days #10 tabs polyethylene glycol 3350 17 17 g PO DAILY PRN constipation 11/01/23 gram/dose oral powder (ClearLax) #510 grams Allergies Allergy/AdvReac Type Severity Reaction Status Date / Time acetaminophen [From Fioricet] Allergy Severe Swelling Verified 02/03/19 16:19 of Lip/Tongue/Throat butalbital [From Fioricet] Allergy Severe Swelling Verified 02/03/19 16:19 of Lip/Tongue/Throat caffeine [From Fioricet] Allergy Severe Swelling Verified 02/03/19 16:19 of Lip/Tongue/Throat pravastatin Allergy Intermediate Agitated Verified 02/03/19 16:19 lidocaine Allergy Verified 02/03/19 16:19 silver Allergy Verified 02/03/19 16:19 [From Tegaderm AG Mesh] sulfamethoxazole Allergy Verified 02/03/19 16:19 [From Bactrim] tramadol [From Ultram] Allergy Verified 02/03/19 16:19 trimethoprim [From Bactrim] Allergy Verified 02/03/19 16:19 PFSH [facility] Disclaimer: The information contained in this section may have been updated after the patient was seen, as this information can be updated by other users. Medical History (Updated 11/01/23 @ 05:51 by Christopher Lee MD) Kidney stones Ovarian cyst Stroke Social History Smoking Status: Current every day smoker tobacco type: cigarettes packs per day: 1 second hand exposure: Yes alcohol intake: never substance use type: marijuana current occupational status: other Travel in the last 8 weeks: None number of children: 3 ROS Obtained: Yes All systems reviewed & no additional complaints except as documented Constitutional Constitutional: Denies chills, Denies fever(s), Denies headache(s) and Denies weakness Eyes Eyes: Denies change in vision ENT Ears, Nose, Mouth, and Throat: Denies dizziness, Denies headache(s), Denies nasal congestion and Denies sore throat Cardiovascular Cardiovascular: Denies chest pain, Denies dyspnea and Denies leg edema Respiratory Respiratory: Denies cough and Denies dyspnea Gastrointestinal Gastrointestingal: Reports abdominal pain and nausea; Denies constipation, diarrhea or vomiting Genitourinary Female Genitourinary: Denies dysuria Musculoskeletal Musculoskeletal: Denies arthralgias, Denies myalgias, Denies numbness and Denies tingling Integumentary/Breasts Skin/Breast: Denies change in pigmentation Neurologic Neurologic: Denies dizziness, Denies headache(s), Denies numbness, Denies tingling and Denies weakness Physical Exam General General appearance: alert and in no apparent distress Head Head exam: atraumatic and normocephalic Eye Eye exam: Present PERRL and EOMI ENT ENT exam: Present mucous membranes moist Neck Neck exam: Present normal inspection and full ROM Chest Chest inspection: Present symmetric chest wall rise; Absent tenderness Respiratory Respiratory exam: Present normal lung sounds bilaterally; Absent respiratory distress or stridor Cardiovascular Cardiovascular exam: Present regular rate and normal rhythm Abdominal Exam Abdominal exam: Present soft, tenderness (Severe epigastric tenderness with even mild palpation, voluntary guarding present, remainder of exam abdomen is soft and benign) and guarding; Absent distention or rebound Extremities Exam Extremities exam: Present full ROM Neurological Exam Neurological exam: Present alert and oriented X3; Absent motor sensory deficit Psychiatric Psychiatric exam: Present normal affect and normal mood Skin Skin exam: Present warm and dry Medical Decision Making Pasquale Inquiry Pt receiving controlled substance: No Vital Signs: 11/01/23 03:40 11/01/23 04:01 11/01/23 04:10 Temperature 97.7 F Temperature Source Oral Pulse Rate 65 Pulse Rate [Left Radial] 72 Respiratory Rate 19 Blood Pressure 116/76 112/72 Blood Pressure [Left Arm] 123/79 Blood Pressure Mean 86 Blood Pressure Mean [Left Arm] 93 Blood Pressure Source [Left Arm] Automatic Cuff Blood Pressure Position [Left Arm] Sitting 02 Sat by Pulse Oximetry 97 100 Oxygen Delivery Method Room Air 11/01/23 04:20 11/01/23 04:40 11/01/23 04:52 Temperature Temperature Source Pulse Rate 53 L 60 Pulse Rate [Left Radial] Respiratory Rate Blood Pressure 123/79 132/93 H 125/82 Blood Pressure [Left Arm] Blood Pressure Mean 93 Blood Pressure Mean [Left Arm] Blood Pressure Source [Left Arm] Blood Pressure Position [Left Arm] 02 Sat by Pulse Oximetry 100 98 Oxygen Delivery Method Lab Data Lab Results 11/01/23 03:50: WBC 16.6 H, RBC 4.69, Hgb 12.9, Hct 41.3, MCV 88.2, MCH 27.5, MCHC 31.2 L, RDW 14.7, Plt Count 356, MPV 8.1, Neut % (Auto) 82.7 H, Lymph % (Auto) 11.2, Harmon % (Auto) 5.4, Eos % (Auto) 0.5, Baso % (Auto) 0.2, Neut # (Auto) 13.7 H, Lymph # (Auto) 1.9, Harmon # (Auto) 0.9, Eos # (Auto) 0.1, Baso # (Auto) 0.0, Total Counted 100, Neutrophils % (Manual) 77 H, Lymphocytes % (Manual) 16, Monocytes % (Manual) 7, Platelet Estimate Normal, Hypochromasia 2+, Sodium 139, Potassium 4.2, Chloride 105, Carbon Dioxide 27, Anion Gap 11.2, BUN 9, Creatinine 0.60, Estimated Creat Clear 95, Estimated GFR 109, Est GFR ( Amer) 132, Glucose 116 H, Lactate 0.7, Calcium 9.5, Total Bilirubin 0.5, AST 25, ALT 15, Alkaline Phosphatase 85, Troponin I < 0.01, Total Protein 7.8, Albumin 4.7, Globulin 3.1, Albumin/Globulin Ratio 1.5, Lipase 151, Serum HCG, Qual Negative 11/01/23 05:15: Urine Color Yellow, Urine Appearance Clear, Urine pH 5.0, Ur Specific [place] 1.015, Urine Protein Trace, Urine Glucose (UA) Negative, Urine Ketones Negative, Urine Blood Negative, Urine Nitrate Negative, Urine Bilirubin Negative, Urine Urobilinogen 0.2, Ur Leukocyte Esterase Negative, Urine RBC None, Urine WBC Occasional, Ur Squamous Epith Cells 10-20, Urine Bacteria Trace, Urine Opiates Screen Positive H, Urine Methadone Screen Negative, Ur Barbituates Screen Negative, Ur Phencyclidine Scrn Negative, U Benzodiazepines Scrn Negative, Urine Cocaine Screen Negative, U Marijuana (THC) Screen Positive H 11/01/23 03:50 11/01/23 03:50 Orders (Tests/Meds): ED MEDICATIONS Discontinued Medications Generic Name Dose Route Start Last Admin Trade Name Freq PRN Reason Stop Dose Admin Al Hydrox/Mg Hydrox/Simethicone 30 ml 11/01/23 04:40 11/01/23 04:46 Aluminum/Magnesium/Simethicone 30ml Udc PO 11/01/23 04:41 30 ml ONCE ONE Administration Iopamidol 100 ml 11/01/23 04:35 11/01/23 04:35 Iopamidol-370 (76%);100ml Bottle IV 11/01/23 04:36 100 ml ONCE ONE Administration Ketorolac Tromethamine 15 mg 11/01/23 04:34 11/01/23 04:46 Ketorolac 30mg/Ml Vial IV 11/01/23 04:35 15 mg ONCE ONE Administration Morphine Sulfate 4 mg 11/01/23 03:47 11/01/23 03:55 Morphine 4mg/Ml Syringe IV 11/01/23 03:48 4 mg ONCE ONE Administration Ondansetron HCl 4 mg 11/01/23 03:48 11/01/23 03:55 Ondansetron 4mg/2ml Vial IV 11/01/23 03:49 4 mg ONCE ONE Administration Simethicone 80 mg 11/01/23 04:44 11/01/23 04:58 Simethicone 80mg Chewable Tablet PO 11/01/23 04:45 Not Given ONCE ONE Sodium Chloride 10 ml 11/01/23 04:35 11/01/23 04:35 Sodium Chloride 0.9% 10ml Syr (Rad Only) IV 11/01/23 04:36 10 ml ONCE ONE Administration ORDERS Category Date Time Status CT angio abdomen pelvis Stat Cat Scan 11/01/23 03:[address] angio chest - dissection Stat Cat Scan 11/01/23 03:47 Taken CBC w/Auto Diff [Complete Blood Count Auto Diff] Stat Lab 11/01/23 03:50 Completed CMP [Comprehensive Metabolic Panel] Stat Lab 11/01/23 03:50 Completed HCG Qualitative, Serum Stat Lab 11/01/23 03:50 Completed Lactic Acid Stat Lab 11/01/23 03:50 Completed Lipase Stat Lab 11/01/23 03:50 Completed Trop I [Troponin I] Stat Lab 11/01/23 03:50 Completed Troponin I Q3H Lab 11/01/23 07:00 Ordered Troponin I Q3H Lab 11/01/23 10:00 Ordered UDS [Drug Screen,Urine] Stat Lab 11/01/23 05:15 Results Urinalysis and Microscopic Stat Lab 11/01/23 05:15 Completed ECG Request Stat Y 11/01/23 03:47 Ordered Medical Decision Narrative: In summary, this 43year old female presents to the emergency department today with severe epigastric abdominal pain radiating to the back. On initial evaluation patient is hemodynamically stable, cardiopulmonary exam reassuring, abdominal exam notable for epigastric tenderness with voluntary guarding, remainder of abdominal exam is benign. Differential diagnosis includes but is not limited to pancreatitis, mesenteric ischemia, dissection, kidney stone, urinary tract infection, bowel obstruction, also considered constipation, narcotics withdrawal but patient is not having any emesis, diarrhea, or diaphoresis. Based on these concerns, I ordered appropriate labs and imaging including cardiac workup, biomarkers, lipase, lactic, basic labs, UA, CT angiography.. ECG personally interpreted demonstrates sinus bradycardia with short MN, normal axis, normal QT, no STEMI. The patient has a short MN, there is no finding of WPW. Patient received 1 dose of IV morphine, IV Zofran, IV fluids for initial treatment. Labs personally reviewed demonstrate leukocytosis with WBC 16.6, no anemia, normal sodium, potassium, chloride, lipase improved from her prior visit down to 151, previously over 190. test negative. Initial troponin undetectably low at less than 0.01. UA negative for signs of infection, UDS positive for THC, opioids, [] CT abdomen pelvis personally interpreted demonstrates no obvious findings of obstruction, patient has large stool burden in the right colon, I do not appreciate any bowel edema or arterial obstruction. See radiology read for final interpretation. On reassessment patient states the morphine wore off and she is having pain again. Given her significant history of narcotics use I do not plan to administer additional opioids. She did receive Toradol and Maalox. On further reassessment patient states her symptoms have improved. She has tolerated oral intake. She is appropriate for discharge at this time. I discussed with her a better bowel regimen because she has stool burden. She states she does not have any of the previously prescribed senna or docusate. I prescribed MiraLAX. Patient was given instructions on symptomatic management, follow up instructions, and return precautions for the emergency department. Patient indicated understanding and was discharged in stable condition. Critical Care Critical Care Time Critical Care Time: No
[2023-11-01] MEDS: ONDANSETRON 4MG/2ML VIAL 4 MG IV (03:55)
[2023-11-01] MEDS: MORPHINE 4MG/ML SYRINGE 4 MG IV (03:55)
[2023-11-01 03:57] LABS: Basophils % 0.2 % (0.1-2.0); Eosinophils # 0.1 K/mm3 (0.0-0.4); Eosinophils % 0.5 % (0.1-12.0); Hematocrit 41.3 % (37.0-47.0); Hemoglobin 12.9 g/dL (12.2-16.2); Lymphocytes # 1.9 K/mm3 (0.7-4.5); Lymphocytes % 11.2 % (10-50); Mean Corpuscular HGB Conc 31.2 g/dL (31.8-35.4); Mean Corpuscular Hemoglobin 27.5 pg (27.0-31.2); Mean Corpuscular Volume 88.2 fl (81-99); Mean Platelet Volume 8.1 fl (7.4-10.4); Monocytes # 0.9 K/mm3 (0.1-1.0); Monocytes % 5.4 % (1.7-9.3); Neutrophils # 13.7 K/mm3 (1.8-7.8); Neutrophils % 82.7 % (37.0-80.0); Platelet Count 356 K/mm3 (142-424); Red Blood Count 4.69 M/mm3 (4.20-5.40); Red Cell Distribution Width 14.7 % (11.5-17.5); White Blood Count 16.6 K/mm3 (4.8-10.8)
[2023-11-01 04:05] LABS: HCG Qualitative, Serum Negative (Negative)
--- NOTE | 2023-11-01 04:06 | ECG_ITS ---
APPROVED REPORT Exam: Resting ECG HR:58 bpm ECG Measurements Heart Rate 58 AXES WV 103 P 69 QRSd 79 QRS 73 QT 411 T 72 QTc 407 Conclusion SINUS BRADYCARDIA WITH SHORT WV INTERVAL BORDERLINE ECG UNCONFIRMED REPORT Electronically signed by : Ignacio Tracey MD 11/02/2023 12:38:29
[2023-11-01 04:10] LABS: MANUAL DIFFERENTIAL MANUAL DIFFERENTIAL (MANUAL DIFF)
[2023-11-01 04:14] LABS: Lipase 151 U/L (23-300)
[2023-11-01 04:15] LABS: Alanine Aminotransferase 15 U/L (12-78); Albumin Level 4.7 g/dl (3.5-5.0); Albumin/Globulin Ratio 1.5 (1.1-1.8); Alkaline Phosphatase 85 U/L (38-126); Anion Gap 11.2 mEq/L (5-15); Aspartate Amino Transferase 25 U/L (14-36); Bilirubin,Total 0.5 mg/dl (0.2-1.3); Blood Urea Nitrogen 9 mg/dl (7-17); Calcium 9.5 mg/dl (8.4-10.2); Carbon Dioxide 27 mmol/L (22.0-30.0); Chloride 105 mmol/L (98-107); Creatinine Clearance Estimated 95 mL/min (50-200); Estimated Glomerular Filt Rate 109 ml/min (>60); GFR (African American) 132 ML/MIN (>60); Globulin 3.1 g/dL (1.3-3.2); Glucose 116 mg/dl (74-100); Lactic Acid 0.7 mmol/L (0.7-2.1); Potassium 4.2 mmoL/L (3.5-5.1); Sodium 139 mmol/L (136-145); Total Protein,Serum 7.8 g/dl (6.3-8.2)
[2023-11-01 04:27] LABS: Troponin I < 0.01 ng/ml (0.00-0.034)
[2023-11-01] MEDS: SODIUM CHLORIDE 0.9% 10ML SYR (RAD ONLY) 10 ML IV (04:35)
[2023-11-01] MEDS: IOPAMIDOL-370 (76%);100ML BOTTLE 100 ML IV (04:35)
[2023-11-01 04:40] LABS: Hypochromasia 2+; Lymphocytes % 16 % (10-50); Monocytes % 7 % (2-9); Neutrophils % 77 % (42-76); Platelet Estimate Normal; Total Cells Counted 100
[2023-11-01] MEDS: KETOROLAC 30MG/ML VIAL 15 MG IV (04:46)
[2023-11-01] MEDS: ALUMINUM/MAGNESIUM/SIMETHICONE 30ML UDC 30 ML PO (04:46)
[2023-11-01 05:21] LABS: Microscopic, Urine URINE MICROSCOPIC (MICROSCOPIC)
[2023-11-01 05:22] LABS: Appearance,Urine CLEAR (Clear); Bilirubin,Urine Negative (Negative); Blood, Urine Negative (Negative); Color,Urine YELLOW (Yellow); Glucose,Urine (UA) Negative (Negative); Ketones,Urine Negative (Negative); Leukocyte Esterase,Urine Negative (Negative); Nitrate,Urine Negative (Negative); Protein,Urine TRACE (Negative); Specific Gravity, Urine 1.015 (1.005-1.030); Urobilinogen,Urine 0.2 EU/dl (0.2)
[2023-11-01 05:33] LABS: Barbiturates Screen,Urine Negative ng/ml (<200)
[2023-11-01 05:34] LABS: Benzodiazepines Screen,Urine Negative ng/ml (<200); Cannabinoid Screen,Urine Positive ng/ml (<50)
[2023-11-01 05:35] LABS: Cocaine Screen,Urine Negative ng/ml (<300)
[2023-11-01 05:36] LABS: Methadone Screen,Urine Negative ng/ml (<300); Opiate Screen,Urine Positive ng/ml (<300)
[2023-11-01 05:37] LABS: Bacteria,Urine Trace /lpf; Phencyclidine Screen,Urine Negative ng/ml (<25); WBC,Urine Occasional #/hpf (0-3)
[2023-11-04 14:10] LABS: Amphetamine Positive (.); Amphetamine (GC/MS) >3000 ng/mL (Cutoff=500); Amphetamines Positive (.); Methamphetamine Positive (.); Methamphetamine (GC/MS) >3000 ng/mL (Cutoff=500)
== END 2023-11-01 06:09 | disposition home or self-care (01) ==
PROVIDERS: Emergency Provider Emergency Medicine
DX: R10.13 Epigastric pain (principal); R11.0 Nausea; R00.1 Bradycardia, unspecified; F17.210 Nicotine dependence, cigarettes, uncomplicated
CPT/HCPCS: 71275; 74174; 80053; 80307; 80324; 81001; 83605; 83690; 84484; 84703; 85007; 85025; 93005; 96374; 96375; 99285; J2405; Q9967

== ENCOUNTER 2024-10-02 11:19 | Emergency (ER) | payer MEDICARE, SELFPAY ==
[2024-10-02 11:55] VITALS: BP 135/91; PULSE 94; RESP 17; TEMP 37.1; O2SAT 96; BMI 23.8
--- NOTE | 2024-10-02 11:57 | ED_ITS ---
Discharge Plan Disposition Patient Disposition: Home, Self-Care Condition: Good Prescriptions Prescriptions: New ibuprofen [IBU] 800 mg tablet 800 mg PO Q8HP PRN (Reason: Moderate Pain) Qty: 30 0RF amoxicillin-pot clavulanate 875-125 mg Tablet 1 tab PO Q12H Qty: 20 0RF Referrals Follow up/Referrals: Provider,Referral, [Primary Care Provider] - See instructions Activity Restrictions/Add. Instructions Additional Instructions/Restrictions: Drink plenty of fluids. Take ibuprofen for pain. I sent in a prescription for ibuprofen 800 mg tablets. Take the antibiotics (augmentin) as directed. Follow up with your regular doctor. You have to follow up with a dentist. Please call around to the local dentists and get an appointment to be seen by one. GO TO THE ER FOR ANY WORSENING SYMPTOMS Clinical Impressions Clinical Impression: Dental abscess, Pain, dental Instructions Patient Instructions: Tooth Abscess, DI for Tooth Abscess, Ibuprofen, Ceftriaxone Injection Print Language Print Language: Italian Discharge ED Provider: Soham Hayden [facility] General Stated complaint: abcess in roof of mouth Time Seen by Provider: 10/02/24 11:57 Related Data Previous Rx's ?Medication ?Instructions ?Recorded amoxicillin 875 mg-potassium 1 tab PO Q12H #20 tabs 10/02/24 clavulanate 125 mg tablet ibuprofen 800 mg tablet (IBU) 800 mg PO Q8HP PRN Moderate Pain 10/02/24 #30 tabs Allergies Allergy/AdvReac Type Severity Reaction Status Date / Time acetaminophen (From Fioricet) Allergy Severe Swelling Verified 02/03/19 16:19 of Lip/Tongue/Throat butalbital (From Fioricet) Allergy Severe Swelling Verified 02/03/19 16:19 of Lip/Tongue/Throat caffeine (From Fioricet) Allergy Severe Swelling Verified 02/03/19 16:19 of Lip/Tongue/Throat pravastatin Allergy Intermediate Agitated Verified 02/03/19 16:19 lidocaine Allergy Verified 02/03/19 16:19 silver (From Tegaderm AG Allergy Verified 02/03/19 16:19 Mesh) sulfamethoxazole (From Allergy Verified 02/03/19 16:19 Bactrim) tramadol (From Ultram) Allergy Verified 02/03/19 16:19 trimethoprim (From Bactrim) Allergy Verified 02/03/19 16:19 PFSH PFSH Disclaimer: The information contained in this section may have been updated after the patient was seen, as this information can be updated by other users. Medical History (Updated 10/02/24 @ 12:36 by Soham Hayden APRN) Ovarian cyst Stroke Kidney stones Social History Smoking Status: Current every day smoker tobacco type: cigarettes packs per day: 1 second hand exposure: Yes alcohol intake: never substance use type: marijuana current occupational status: other Travel in the last 8 weeks: None number of children: 3 Have you lived/traveled outside [place] in past 30 days?: No Contact w/someone who lives/traveled outside [place] past 30 days?: No Exposure to someone with infectious disease in past 14 days?: No Do you have a fever (greater than 100.4 F or 38 C)?: No Have you tested positive for COVID-19: No Exposed to someone with COVID-19 in past 14 days?: No Do you have a sore throat?: No Do you have a cough?: No Do you have any weakness?: No Do you have any diarrhea?: No Are you experiencing any unusual bleeding?: No Do you have any muscle aches/pain?: No Do you have any abdominal pain?: No Are you experiencing loss of taste or smell?: No ROS Obtained: Yes All systems reviewed & no additional complaints except as documented Constitutional Constitutional: Denies chills and Denies fever(s) Eyes Eyes: Denies eye discharge ENT Ears, Nose, Mouth, and Throat: Denies dizziness, Denies otalgia and Denies sore throat Cardiovascular Cardiovascular: Denies chest pain Respiratory Respiratory: Denies shortness of breath, Denies chest congestion, Denies cough, Denies stridor and Denies wheezing Gastrointestinal Gastrointestingal: Denies nausea or vomiting Musculoskeletal Musculoskeletal: Reports system reviewed and no additional complaints, except as documented and Denies arthralgias Integumentary/Breasts Skin/Breast: Denies rash Neurologic Neurologic: Denies dizziness and Denies paresthesias Allergic/Immunologic Allergic/Immunologic: Denies wheezing Physical Exam General General appearance: alert and in no apparent distress Head Head exam: atraumatic, normocephalic and normal inspection Eye Eye exam: Present normal appearance, PERRL and EOMI ENT ENT exam: Present mucous membranes moist, TM's normal bilaterally and normal external ear exam Expanded ENT Exam Nose exam: Absent sinus tenderness Nasal speculum exam: Bilateral: normal Mouth exam: Present normal external inspection; Absent drooling Teeth exam: Present dental caries, fractured tooth #, dental tenderness # and gingival swelling Throat exam: Present normal inspection Neck Neck exam: Present normal inspection, full ROM and trachea midline; Absent meningismus or lymphadenopathy Chest Chest inspection: Present normal inspection and symmetric chest wall rise; Absent tenderness Respiratory Respiratory exam: Present normal lung sounds bilaterally; Absent respiratory distress Cardiovascular Cardiovascular exam: Present regular rate and normal rhythm; Absent JVD Abdominal Exam Abdominal exam: Present soft and normal bowel sounds; Absent distention, tenderness or guarding Extremities Exam Extremities exam: Present normal inspection, full ROM and normal capillary refill; Absent calf tenderness Back Exam Back exam: Present normal inspection; Absent tenderness Neurological Exam Neurological exam: Present alert and oriented X3 Psychiatric Psychiatric exam: Present normal affect and normal mood Skin Skin exam: Present warm, dry, intact and normal color Lymphatic Lymphatic Findings: no adenopathy Medical Decision Making Medical Records Medical records reviewed: No I reviewed the patient's medical records. Screening: Per USPSTF and CDC recommendations, given the prevalence of disease in our region, it is our hospital?s policy to screen for HIV and viral Hepatitis for all patients aged 18 and over and those with ongoing risk factors. Pasquale Inquiry Pt receiving controlled substance: No
--- NOTE | 2024-10-02 12:18 | PC.NURSE ---
PATIENT HAS ALLERGY TO LIDOCAINE. SPOKE WITH KELLY FROM PHARMACY ON WHAT TO MIX ROCEPHIN WITH. ADVISED TO MIX WITH 2.1 ML OF STERILE WATER
[2024-10-02] MEDS: cefTRIAXone 1GM VIAL 1 GM IM (12:27)
[2024-10-02] MEDS: STERILE WATER FOR INJ 2.1 ML IJ (12:27)
[2024-10-02 12:40] VITALS: BP 135/91; PULSE 94; RESP 17; TEMP 37.1; O2SAT 96
== END 2024-10-02 12:43 | disposition home or self-care (01) ==
PROVIDERS: Emergency Provider Nurse Practitioner Family
DX: K04.7 Periapical abscess without sinus (principal)
CPT/HCPCS: 96372; 99213; G0381; J0696